=== PATIENT | male | born 1950 | race Caucasian/White ===

== ENCOUNTER 2017-05-20 17:37 | Emergency (ER) | payer BC ==
[~2017-05-20] VITALS: Ht 185.4 cm; Wt 85.0 kg
[~2017-05-20 17:37] MED LIST: HYDR25TA5 PO; LOSA100T PO; SIMV20TA PO
[2017-05-20 17:38] VITALS: BP 237/103; PULSE 80; RESP 18; TEMP 99; O2SAT 99
[2017-05-20] MEDS ORDERED: ASPI-516 CHEW (18:01)
[2017-05-20] MEDS ORDERED: MULTTAB67 PO (18:01)
[2017-05-20] MEDS ORDERED: FISH500C (18:01)
[2017-05-20 18:09] VITALS: BP 210/108; PULSE 70; RESP 19; O2SAT 97
--- NOTE | 2017-05-20 18:13 | PD ---
HPI Chief Complaint: Hypertension Time Seen by Provider: 17:50 Travel History International Travel<30 days: No Contact w/Intl Traveler<30days: No Traveled to known affect area: No History of Present Illness HPI 66-year-old male complains of redness and swelling of the left ankle. Patient denies any injury to the ankle. Patient states that the symptoms started about 7 days ago. Patient noticed his blood pressure was also elevated the past several days. Patient has history of hypertension. Patient has been taking Losartan and HCTZ was added a month ago. Patient denies any history of diabetes. Patient is a nonsmoker. Patient denies history of DVT or PE. Patient denies history of gouty arthritis. Patient denies any fever chills. Patient denies any recent long distant travel. PFSH Past Medical History High Cholesterol: Yes Hypertension: Yes Influenza Vaccination: Yes Past Surgical History Abdominal Surgery: Yes (HERNIA) Tonsillectomy: Yes Other Surgery: Yes (VASECTOMY) Social History Alcohol Use: Yes (DAILY COUPLE GLASSES WINE) Tobacco Use: No Substance Use: No Allergies-Medications (Allergen,Severity, Reaction): Coded Allergies: No Known Allergies (Verified , 05/20/17) Reported Meds & Prescriptions Reported Meds & Active Scripts Active Hydrochlorothiazide 25 Mg Tab 25 Mg PO DAILY Simvastatin 20 Mg Tab 20 Mg PO DAILY Losartan (Losartan Potassium) 100 Mg Tab 100 Mg PO DAILY Reported Fish Oil ([place]-3 Fatty Acids) 60 Mg-90 Mg-500 Mg Cap Multiple Vitamin 1 Tab 1 Tab PO DAILY Aspirin 81 Mg Chew 81 Mg CHEW ONCE Review of Systems General / Constitutional: No: Fever Eyes: No: Visual changes HENT: No: Headaches Cardiovascular: No: Chest Pain or Discomfort Respiratory: No: Shortness of Breath Gastrointestinal: No: Abdominal Pain Genitourinary: No: Dysuria Musculoskeletal: Positive: Edema, No: Pain Skin: No Rash Neurologic: No: Weakness Psychiatric: No: Depression Endocrine: No: Polydipsia Hematologic/Lymphatic: No: Easy Bruising Physical Exam Narrative GENERAL: Well-nourished, well-developed patient. SKIN: Focused skin assessment warm/dry. HEAD: Normocephalic. EYES: No scleral icterus. No injection or drainage. NECK: Supple, trachea midline. No JVD or lymphadenopathy. CARDIOVASCULAR: Regular rate and rhythm without murmurs, gallops, or rubs. RESPIRATORY: Breath sounds equal bilaterally. No accessory muscle use. GASTROINTESTINAL: Abdomen soft, non-tender, nondistended. MUSCULOSKELETAL: Patient has mild redness of the skin associated with the left ankle on the medial and lateral malleolus and distal aspect the left lower leg. No heat noted. No tenderness on palpation. Mild edema dorsal aspect the left foot. Patient has some mild soft tissue swelling over the right ankle also. No tenderness on palpation the calf area. Negative Homans sign. BACK: Nontender without obvious deformity. No CVA tenderness. Neurologic exam normal. Data Data Last Documented VS Vital Signs Date Time Temp Pulse Resp B/P (MAP) Pulse Ox O2 Delivery O2 Flow Rate FiO2 05/20/17 18:16 75 18 213/105 (141) 97 05/20/17 17:55 Room Air 05/20/17 17:38 99.0 Orders Orders Complete Blood Count With Diff (05/20/17 17:59) Comprehensive Metabolic Panel (05/20/17 17:59) B-Type Natriuretic Peptide (05/20/17 17:59) Prothrombin Time / Inr (Pt) (05/20/17 17:59) Act Partial Throm Time (Ptt) (05/20/17 17:59) C-Reactive Protein (Crp) (05/20/17 17:59) Westergren Sedimentation Rate (05/20/17 17:59) Chest, Single Ap (05/20/17 17:59) Iv Access Insert/Monitor (05/20/17 17:59) Ecg Monitoring (05/20/17 17:59) Oximetry (05/20/17 17:59) Uric Acid (05/20/17 17:59) Us Leg Venous Doppler Bilat (05/20/17 18:03) Hydralazine Inj (Apresoline Inj) (05/20/17 18:15) Labs Laboratory Tests Test 05/20/17 18:07 [facility] Medical Decision Making Medical Screen Exam Complete: Yes Emergency Medical Condition: Yes Differential Diagnosis Differential diagnosis including gouty arthritis, dependent edema, CHF, DVT, cellulitis. Narrative Course 66-year-old male redness and swelling left ankle. Mild swelling the right ankle also. Patient has history hypertension on HCTZ. Bora Chao MD May 20, 2017 18:12
[2017-05-20] MEDS ORDERED: hydrALAZINE HCL 20 MG/ML VIAL IV PUSH ONE (18:15)
[2017-05-20 18:16] VITALS: BP 213/105; PULSE 75; RESP 18; O2SAT 97
[2017-05-20 18:25] LABS: APTT (PATIENT) 26.9 SEC (24.3-30.1); PROTHROMBIN TIME - PATIENT 10.2 SEC (9.8-11.6)
[2017-05-20 18:26] LABS: AUTOMATED NEUTROPHIL # 2.8 TH/MM3 (1.8-7.7); BASOPHIL % 0.6 % (0.0-2.0); EOSINOPHIL # 0.2 TH/MM3 (0-0.4); EOSINOPHIL % 3.3 % (0.0-4.0); HEMATOCRIT 36.1 % (39.0-51.0); HEMO FLAGS DIFF FINAL; LYMPH % 25.1 % (9.0-44.0); LYMPHOCYTE # 1.3 TH/MM3 (1.0-4.8); MEAN CELL VOLUME 91.2 FL (80.0-100.0); MEAN CORPUSCULAR HEMOGLOBIN 31.9 PG (27.0-34.0); MONO % 16.3 % (0.0-8.0); NEUT % 54.7 % (16.0-70.0); PLATELET COUNT 337 TH/MM3 (150-450); RED BLOOD COUNT 3.96 MIL/MM3 (4.50-5.90); WHITE BLOOD COUNT 5.2 TH/MM3 (4.0-11.0)
--- NOTE | 2017-05-20 18:29 | RADRPT ---
EXAM DATE/TIME: 05/20/2017 18:11 [facility] COMPARISON: No previous studies available for comparison. INDICATIONS : High blood pressure. MEDICAL HISTORY : Hypertension. SURGICAL HISTORY : None. ENCOUNTER: Initial ACUITY: 1 day PAIN SCORE: 2/10 LOCATION: Bilateral chest FINDINGS: A single view of the chest demonstrates the lungs to be symmetrically aerated without evidence of mas s, infiltrate or effusion. The cardiomediastinal contours are unremarkable. Osseous structures are intact. CONCLUSION: 1. No acute findings. Osteoarthritis of the a.c. joints. Galo Harris MD on May 20, 2017 at 18:26 Board Certified Radiologist. This report was verified electronically.
[2017-05-20 18:39] LABS: ALT (GPT) 25 U/L (12-78); ANION GAP 9 MEQ/L (5-15); AST (GOT) 25 U/L (15-37); BICARBONATE 26.1 MEQ/L (21.0-32.0); BLOOD UREA NITROGEN 13 MG/DL (7-18); CHLORIDE 92 MEQ/L (98-107); GLOMERULAR FILTRATION RATE 86 ML/MIN (>89); POTASSIUM 3.9 MEQ/L (3.5-5.1); SODIUM (NA) 127 MEQ/L (136-145); URIC ACID 3.1 MG/DL (2.6-7.2)
[2017-05-20 18:42] LABS: ALKALINE PHOSPHATASE 60 U/L (45-117); TOTAL BILIRUBIN ADULT 0.5 MG/DL (0.2-1.0)
[2017-05-20 18:55] VITALS: BP 176/90; PULSE 80; RESP 18; O2SAT 99
--- NOTE | 2017-05-20 19:14 | RADRPT ---
EXAM DATE/TIME: 05/20/2017 18:21 [facility] COMPARISON: No previous studies available for comparison. INDICATIONS : Bilateral leg swelling. MEDICAL HISTORY : Hypercholesterolemia. Hypertension. Hyperlipidemia. SURGICAL HISTORY : Tonsillectomy. Hernia repair. Discectomy. Left achilles and miniscus repair. Vasectomy. ENCOUNTER: Initial ACUITY: 1 week PAIN SCORE: 2/10 LOCATION: Bilateral legs. TECHNIQUE: Venous ultrasound of the left and right leg was performed from the inguinal ligament to the proximal calf. Real-time, color Doppler and spectral tracing, compression and augmentation techniques were us ed. FINDINGS: RIGHT LEG: There is normal compressibility of the deep venous system from the inguinal region to the proximal ca lf. No echogenic clot is seen in the lumen of the common femoral, femoral, popliteal, and posterior tibial veins. There is a normal response of the venous system to proximal and distal augmentation an d respiration. LEFT LEG: There is normal compressibility of the deep venous system from the inguinal region to the proximal ca lf. No echogenic clot is seen in the lumen of the common femoral, femoral, popliteal, and posterior tibial veins. There is a normal response of the venous system to proximal and distal augmentation an d respiration. CONCLUSION: Normal examination. Galo Harris MD on May 20, 2017 at 19:12 Board Certified Radiologist. This report was verified electronically.
[2017-05-20 19:28] VITALS: BP 181/85; PULSE 74; RESP 18; O2SAT 99
--- NOTE | 2017-05-20 20:26 | PD ---
Physical Exam Narrative GENERAL: Well-nourished, well-developed patient. SKIN: Patient has swelling of his bilateral ankles, there is redness to the bilateral lower legs with left greater than right. There is no induration or abscess or crepitus HEAD: Normocephalic and atraumatic. EYES: No injection or drainage. ENT: No nasal drainage noted. NECK: Supple, trachea midline. CARDIOVASCULAR: Regular rate and rhythm RESPIRATORY: No increased effort. No accessory muscle use. EXTREMITIES: No significant specific joint pain, neurovascularly intact, no lacerations over, compartments soft. NEUROLOGICAL: Awake and alert. Motor and sensory grossly within normal limits. Normal speech. Data Data Last Documented VS Vital Signs Date Time Temp Pulse Resp B/P (MAP) Pulse Ox O2 Delivery O2 Flow Rate FiO2 05/20/17 19:28 74 18 181/85 (117) 99 Room Air 05/20/17 17:38 99.0 Orders Orders Complete Blood Count With Diff (05/20/17 17:59) Comprehensive Metabolic Panel (05/20/17 17:59) B-Type Natriuretic Peptide (05/20/17 17:59) Prothrombin Time / Inr (Pt) (05/20/17 17:59) Act Partial Throm Time (Ptt) (05/20/17 17:59) C-Reactive Protein (Crp) (05/20/17 17:59) Westergren Sedimentation Rate (05/20/17 17:59) Chest, Single Ap (05/20/17 17:59) Iv Access Insert/Monitor (05/20/17 17:59) Ecg Monitoring (05/20/17 17:59) Oximetry (05/20/17 17:59) Uric Acid (05/20/17 17:59) Us Leg Venous Doppler Bilat (05/20/17 18:03) Hydralazine Inj (Apresoline Inj) (05/20/17 18:15) Ed Discharge Order (05/20/17 20:20) Labs Laboratory Tests Test 05/20/17 18:07 White Blood Count 5.2 TH/MM3 Red Blood Count 3.96 MIL/MM3 Hemoglobin 12.6 GM/DL Hematocrit 36.1 % Mean Corpuscular Volume 91.2 FL Mean Corpuscular Hemoglobin 31.9 PG Mean Corpuscular Hemoglobin Concent 35.0 % Red Cell Distribution Width 13.0 % Platelet Count 337 TH/MM3 Mean Platelet Volume 6.8 FL Neutrophils (%) (Auto) 54.7 % Lymphocytes (%) (Auto) 25.1 % Monocytes (%) (Auto) 16.3 % Eosinophils (%) (Auto) 3.3 % Basophils (%) (Auto) 0.6 % Neutrophils # (Auto) 2.8 TH/MM3 Lymphocytes # (Auto) 1.3 TH/MM3 Monocytes # (Auto) 0.8 TH/MM3 Eosinophils # (Auto) 0.2 TH/MM3 Basophils # (Auto) 0.0 TH/MM3 CBC Comment DIFF FINAL Differential Comment Erythrocyte Sedimentation Rate 15 mm/hr Prothrombin Time 10.2 SEC Prothromb Time International Ratio 1.0 RATIO Activated Partial Thromboplast Time 26.9 SEC Blood Urea Nitrogen 13 MG/DL Creatinine 0.89 MG/DL Random Glucose 93 MG/DL Total Protein 7.2 GM/DL Albumin 3.8 GM/DL Calcium Level 8.8 MG/DL Uric Acid 3.1 MG/DL Alkaline Phosphatase 60 U/L Aspartate Amino Transf (AST/SGOT) 25 U/L Alanine Aminotransferase (ALT/SGPT) 25 U/L Total Bilirubin 0.5 MG/DL Sodium Level 127 MEQ/L Potassium Level 3.9 MEQ/L Chloride Level 92 MEQ/L Carbon Dioxide Level 26.1 MEQ/L Anion Gap 9 MEQ/L Estimat Glomerular Filtration Rate 86 ML/MIN C-Reactive Protein 1.60 MG/DL B-Type Natriuretic Peptide 70 PG/ML MDM Supervised Visit with TROY: No Interpretation(s) BNP is normal Narrative Course Signed over to me to follow BNP and if normal to discharge BNP is normal. Lengthy discussion with patient and and they agree to keep blood pressure log and follow closely as an outpatient for medication adjustment. No emergent indication for antibiotic at this time but patient and understand that if the redness worsens or if he develops a fever he needs to return for antibiotics. Patient could be having inflammatory arthritis and for this was recommended anti-inflammatories. He agrees to plan of care and return instructions. Diagnosis Primary Impression: Leg edema Additional Impression: Hypertension Qualified Codes: I10 - Essential (primary) hypertension Patient Instructions: General Instructions Additional Instruction: return as needed, follow with primary tuesday, keep blood pressure log, elevate legs at rest Med/Other Pt SpecificInfo: No Change to Meds Disposition: DISCHARGE HOME Condition: Stable Sherri Murcia MD May 20, 2017 20:26
[2017-05-20 21:10] VITALS: BP 164/88
[2017-05-24] MEDS ORDERED: AMLO10TA2 PO (08:52)
[2017-05-31] MEDS ORDERED: SIMV20TA PO (08:48)
[2017-05-31] MEDS ORDERED: HYDR25TA5 PO (08:48)
[2017-05-31] MEDS ORDERED: LOSA100T PO (08:48)
[2017-05-31] MEDS ORDERED: AMLO10TA2 PO (08:48)
== END 2017-05-20 21:15 | disposition home or self-care (01) ==
LOC: NEPC 17:37
DX: R60.0 Localized edema (principal); I10 Essential (primary) hypertension; E78.00 Pure hypercholesterolemia, unspecified; Z79.82 Long term (current) use of aspirin; Z79.899 Other long term (current) drug therapy
CPT/HCPCS: 71010; 80053; 83880; 84550; 85025; 85610; 85652; 85730; 86140; 93970; 96374; 99285; J0360

== ENCOUNTER 2017-06-30 06:57 | Day surgery (SDC) | payer BC ==
[~2017-06-30] VITALS: Ht 185.4 cm; Wt 85.3 kg
[~2017-06-30 06:57] MED LIST changes: +AMLO10TA2 PO; +ASPI-516 CHEW; +FISH500C; +MULTTAB67 PO
[2017-06-30] MEDS ORDERED: IOHEXOL 350 MG/ML 100 ML BTL (for Cath Lab) OTHER ONE (06:58)
[2017-06-30] MEDS ORDERED: IOHEXOL 350 MG/ML 50 ML BTL (for Cath Lab) OTHER ONE (06:58)
[2017-06-30 07:29] VITALS: BP 150/88; PULSE 65; RESP 18; TEMP 98.2; O2SAT 97
[2017-06-30 07:31] LABS: AUTOMATED NEUTROPHIL # 2.6 TH/MM3 (1.8-7.7); BASOPHIL # 0.1 TH/MM3 (0-0.2); EOSINOPHIL # 0.6 TH/MM3 (0-0.4); HEMATOCRIT 38.7 % (39.0-51.0); HEMOGLOBIN 13.5 GM/DL (13.0-17.0); LYMPH % 26.3 % (9.0-44.0); LYMPHOCYTE # 1.4 TH/MM3 (1.0-4.8); MEAN CELL VOLUME 91.3 FL (80.0-100.0); MEAN CORPUSCULAR HEMOGLOBIN 31.8 PG (27.0-34.0); MEAN CORPUSCULAR HGB CONC 34.8 % (32.0-36.0); MEAN PLATELET VOLUME 6.9 FL (7.0-11.0); MONO % 15.2 % (0.0-8.0); MONOCYTE # 0.8 TH/MM3 (0-0.9); NEUT % 47.5 % (16.0-70.0); PLATELET COUNT 390 TH/MM3 (150-450); RED BLOOD COUNT 4.24 MIL/MM3 (4.50-5.90); RED CELL DISTRIBUTION WIDTH 13.1 % (11.6-17.2); WHITE BLOOD COUNT 5.5 TH/MM3 (4.0-11.0)
[2017-06-30] MEDS ORDERED: METO25TA3 PO (07:37)
[2017-06-30] MEDS ORDERED: ATOR40TA16 PO (07:37)
[2017-06-30 07:41] LABS: PROTHROMBIN TIME - PATIENT 9.9 SEC (9.8-11.6)
[2017-06-30] MEDS ORDERED: diphenhydrAMINE HCL 50 MG CAP PO SCH (07:45)
[2017-06-30 07:48] LABS: BICARBONATE 27.6 MEQ/L (21.0-32.0); CALCIUM 9.1 MG/DL (8.5-10.1); CREATININE 1.05 MG/DL (0.60-1.30)
[2017-06-30] MEDS ORDERED: NS 1000P @30 MLS/HR (KVO) IV SCH (08:00)
[2017-06-30] MEDS ORDERED: MIDAZOLAM HCL 2 MG/2 ML VIAL ONE ×2 (08:35→09:16)
[2017-06-30] MEDS ORDERED: HEPARIN-NS/PF INJ 1,000 ML ONE (08:35)
[2017-06-30] MEDS ORDERED: NITROGLYCERIN INJ 5 ML ONE (08:36)
[2017-06-30] MEDS ORDERED: VERAPAMIL HCL 5 MG/2 ML VIAL ONE (08:36)
[2017-06-30] MEDS ORDERED: HEPARIN SODIUM - IV 10,000 UNITS/10 ML VIAL ONE (08:36)
[2017-06-30] MEDS ORDERED: PRASUGREL 10 MG TAB ONE (09:50)
--- NOTE | 2017-06-30 10:04 | CATHPROC ---
[employer] HIS Report Study Information Study Number Admission Scheduled Start Study Start [id number] Jun 30 2017 6:57AM 06/30/2017 Jun 30 2017 8:27AM [facility] Cardiac Catheterization Admit Source Facility Department Other [facility] - [facility] [employer] Physician and Clinical Staff Initial MD Fairbanks, Matthew Box Annealer Moraima Davila BSN Recorder Zaida Chacon,RT(R) (BS) Scrub Scott Garcia,RT(R) Procedures Performed Procedure Location (Site) Vessel Name Drug Eluting Inflatio LAD Prox Left Coronary L Heart Cath LV Gram-hand inj. LV LV Ventricle PTCA LAD Prox Left Coronary Wire insertion Radial (right) Radial Art. Equipment Time First Beater Description Size Mfg Part Number Used/Scraped COPILOT VALVE, BLEEDBACK [id number] 09:33 [employer] Used CONTROL *[id number] TRANSDUCER, TRUWAVE [id number] 08:40 SAHU BLAIR * Used W/STOCKCOCK *[id number] 534-545T *[id number] 534-521T *[id number] 08:40 [employer] PACK, CCL CUSTOM * Used *[id number] 08:40 [employer] SUPPORT, ARTERIAL ADULT 88769 *[id number] Used [id number] 09:34 [employer]IC BALLOON, 2.5 X 12MM EUPHORA 12MM Used *[id number] BALLOON, 4.0 X 8MM NC [id number] 09:46 [employer] 8MM Used EUPHORA *[id number] 08:50 [employer] JL 3.5 DXTERITY CATHETER FR 5 Used *[id number] 09:41 [employer] STENT, 3.5 12MM PERLITA 3.5 12MM Used *[id number] 09:38 [employer] STENT, 3.5 15MM PERLITA 3.5 15MM Used *[id number] 09:32 [employer]IC/AVE EBU 3.5 Z2 GUIDE CATHETER FR 6 Used *[id number] 09:33 [employer] MEDICAL 30 POLLY INDEFLATOR Used *[id number] BAND, RADIAL COMPRESSION TR [id number] 09:49 [employer] MEDICAL 24CM Used SHORT 24 *[id number] 08:40 [employer] WIRE, 3MMJ .035 180CM 180CM Used *[id number] 08:40 NAMIC MANIFOLD, 4 PORT * Used *[id number] 08:40 [employer]ED OMNIPAQUE, 350 MG, 150ML 150ML [id number] Used [id number] 08:40 [employer] MEDICAL BLANKET,WARM AIR CCL * Used *[id number] SHEATH, FR6 TRANSRADIAL [id number] 08:40 [employer] MEDICAL FR 6 Used SLENDER 10CM *[id number] WIRE, RUNTHROUGH NS FLOPPY [id number] 09:32 [employer] MEDICAL 180CM Used .014 180CM *[id number] Equipment Model, Serial, Lot Number and Expiration Data Description Model Number Serial Number Lot Number Expiration Date BALLOON, 4.0 X 8MM NC EUPHORA [id number] 02-23-2019 STENT, 3.5 12MM PERLITA [id number] 03-23-2019 History: Current Medications Medication Dosage/Unit Route Frequency Last Date/Time Taken Beta [place]cca Statins (any) ASA History: Allergies Allergy Reaction No Known Allergies History: Risk Factors Family History of Hypertension Dyslipidemia Previous NC Previous Heart Failure Premature CAD Yes Yes Yes No Yes Prior Valve Prior PCI Prior CABG Surgery No No No Cerebrovascular Peripheral Artery Chronic Lung On Dialysis Diabetes Disease Disease Disease No No No No No History: Stress Tests Stress or Imaging Studies Performed Yes Standard Exercise Stress Test No Stress Echo No Stress Test SPECT Stress Test SPECT Result Stress Test SPECT Ischemia Risk/Extent Yes Positive Low Stress Test CMR No Cardiac CTA Coronary Calcium Score No No History: Other Current Smoker No Labs Hgb (g/dl) Hct (%) WBC (l/cumm) Platelets (thousands) 11.60-17.00 35.00-51.00 4.00-11.00 150.00-450.00 13.5 38.7 5.5 390 Glucose (mg/dl) BUN (mg/dl) Creatinine (mg/dl) BUN:Creatinine (1:x) 74.00-106.00 7.00-18.00 0.50-1.30 10.00-20.00 84 13 1.0 13 Na (meq/l) K (meq/l) 136.00-145.00 3.50-5.10 133 4.3 INR (PTT:PT) 0.90-1.10 1 CPK-MB (ng/ML) 0.50-3.60 Not Drawn Medication Medication Total Dose (Bolus/Oral) Medication Total Dosage/Unit 1% XYLOCAINE 1 mL EFFIENT 60 mg FENTANYL 100 mcg HEPARIN 6000 units RADIAL COCKTAIL 1 units VERSED 4 mg Medications (Bolus/Oral) Medication Time Given Dosage/Unit Administered By Reason VERSED 06/30/2017 9:14:39 AM 2 mg Moraima Davila 2 mg VERSED given in lab by Moraima Davila BSN in Left Antecubital via Peripheral IV. 1% XYLOCAINE 06/30/2017 9:15:17 AM 1 mL Harris-Paulette, Matthew 1 mL 1% XYLOCAINE given in lab by HarrisAnetaPaulette Matthew in Right Radial via Subcutaneous. FENTANYL 06/30/2017 9:15:46 AM 50 mcg Moraima Davila 50 mcg FENTANYL given in lab by Moraima Davila BSN in Left Antecubital via Peripheral IV. Ntg 200mcg Verapamil 2.5mg Heparin RADIAL COCKTAIL 06/30/2017 9:16:30 AM 1 units Moraima Davila 3000U 1 units RADIAL COCKTAIL given in Right Radial via Radial. Reason: Ntg 200mcg Verapamil 2.5mg Heparin 2500U. VERSED 06/30/2017 9:18:57 AM 1 mg Moraima Davila 1 mg VERSED given in lab by Moraima Davila BSN in Left Antecubital via Peripheral IV. FENTANYL 06/30/2017 9:19:03 AM 25 mcg Moraima Davila 25 mcg FENTANYL given in lab by Moraima Davila BSN in Left Antecubital via Peripheral IV. HEPARIN 06/30/2017 9:30:54 AM 6000 units Moraima Davila 6000 units HEPARIN given in lab by Moraima Davila BSN in Left Antecubital via Peripheral IV. VERSED 06/30/2017 9:31:09 AM 1 mg Giovanni Moraima 1 mg VERSED given in lab by Moraima Davila BSN in Left Antecubital via Peripheral IV. FENTANYL 06/30/2017 9:32:20 AM 25 mcg Moraima Davila 25 mcg FENTANYL given in lab by Moraima Davila BSN in Left Antecubital via Peripheral IV. EFFIENT 06/30/2017 9:56:31 AM 60 mg Moraima Davila 60 mg EFFIENT given in lab by Moraima Davila BSN via Oral. Medication (Drip) Medication Time Given Dosage/Unit Concentration/Unit Diluent (ml) Solution IV Solutions 06/30/2017 8:27:32 AM 0 mL (IV) 500 NaCl .9 IV Solutions given in lab by Moraima Davila BSN in Left Antecubital via Peripheral IV. Pump/Dri p Flow = 30 ml/hr using NaCl .9. Initial Case Assessment Cardiovascular HR Rhythm NIBP Chest Pain 66 reg 149/83 0 Edema Present Skin color Skin None Normal Warm Dry Circulatory - Right Pulses Dorsalis Pedis Femoral Radial 1 3 3 Scale (0,1,2,3,4,d) Scale (0,1,2,3,4,d) Circulatory - Lower Extremities Color Lower Right Color Lower Left Normal Normal Neurological State Oriented to time-place- Alert Moves all extremities person Respiration - General Respiration Rate SpO2 (%) (B/min) 10 98 Chronological Log Time Study Chronological Log 8:27:15 Patient arrived via Bed. 8:27:16 Patient Name, D.O.B, / Armband Verified By R.N. 8:27:16 Consent signed by the physician and the patient and verified by the [employer] [employer] staff. 8:27:17 Pre-op and post- op instructions given; patient acknowledges understanding of instructions. 8:27:18 Verbal Stimulation=2 Physical Stimulation=2 Airway=2 Respiration=2 TOTAL=8. (0=absent, 1=li mited, 2=present) 8:27:19 Presedation assessment performed by [employer] RN. 8:27:24 Allens test performed on the right radial and ulnar artery. 8:27:27 Patient has been NPO for More than 6Hrs. 8:27:28 Skin Breakdown none per pt 8:27:28 Patient Warmer Placed on the Table. 8:27:30 Ruthy Prominences Protected 8:27:31 A # 20 IV was noted in the Antecubital (left). Grade = 0 IV Solutions given in lab by Moraima Davila BSN in Left Antecubital via Peripheral IV. Pu mp/Drip Flow = 30 ml/hr 8:27:32 using NaCl .9. 8:27:33 History and physical on the chart or being dictated. Assessment: Initial Case, HR=66 BPM, Rhythm=reg, OQLP=838/83 mmhg, Chest Pain=0, Edema=None, Col or=Normal, Skin = Warm, Dry Right Pulses: Derek Ped=1, Femoral=3, Radial=3 8:27:36 Lower Right Extremities: Color=Normal Lower Left Extremities: Color=Normal Neurological: State=Alert, Ox3, PEREZ Respiration: Resp=10 B/min, SpO2=98 % Vitals capture started with the following parameters, Patient=Adult, Interval=5 min, Initial Pre xghdu=384 mmHg, 8:33:41 Deflation Rate=5 mmHg, Cuff placed on Left Arm 8:34:16 Reference ECG taken 8:34:55 HR=66 bpm, BGGH=735/83 mmhg, SpO2=98.0 %, Resp=14 B/min, Pain=0, Marcie=10, Graves=2 8:38:35 Right Radial and right groin prepped with 2% chlorhexidine, and draped after a 3 min. waitin g time. 8:39:21 HR=65 bpm, EPWX=398/84 mmhg, SpO2=98.0 %, Resp=11 B/min, Pain=0, Marcie=10, Graves=2 8:44:22 HR=65 bpm, BLXW=642/77 mmhg, AjY0=640.0 %, Resp=10 B/min, Pain=0, Marcie=10, Graves=2 8:44:51 MD paged 8:45:53 Pressure channel 1 zeroed. 8:47:59 MD responded 8:49:25 HR=65 bpm, XADG=358/81 mmhg, TfK6=155.0 %, Resp=8 B/min, Pain=0, Marcie=10, Graves=2 8:54:24 HR=64 bpm, XQKB=460/78 mmhg, ZyP9=015.0 %, Resp=12 B/min, Pain=0, Marcie=10, Graves=2 8:59:24 HR=66 bpm, BZFF=604/77 mmhg, SpO2=99.0 %, Resp=10 B/min, Pain=0, Marcie=10, Graves=2 9:04:23 HR=64 bpm, XYYG=950/80 mmhg, SpO2=99.0 %, Resp=11 B/min, Pain=0, Marcie=10, Graves=2 9:07:11 MD arrived 9:09:26 HR=67 bpm, QDFD=853/78 mmhg, XfF1=976.0 %, Resp=17 B/min, Pain=0, Marcie=10, Graves=2 9:14:23 HR=68 bpm, YRMY=799/87 mmhg, SpO2=99.0 %, Resp=11 B/min, Pain=0, Marcie=10, Graves=2 Time Out. Correct patient, correct procedure, correct physician, power injector not loaded with contrast with surgical 9:14:23 team present. Time Out Concurred by MD and individual staff in procedure. 9:14:34 Case Start 9:14:39 2 mg VERSED given in lab by Moraima Davila BSN in Left Antecubital via Peripheral IV. 9:15:17 1 mL 1% XYLOCAINE given in lab by Matthew Fairbanks in Right Radial via Subcutaneous. 9:15:46 50 mcg FENTANYL given in lab by Moraima Davila BSN in Left Antecubital via Peripheral IV. 9:16:10 Access site was right Radial Artery. A SHEATH, FR6 TRANSRADIAL SLENDER 10CM FR 6 was advanced into the Radial (right) using the Enedelia rivas 9:16:20 technique. 9:16:30 1 units RADIAL COCKTAIL given in Right Radial via Radial. Reason: Ntg 200mcg Verapamil 2.5mg Heparin 2500U. A JR 4.0 INFINITI CATHETER FR 5 was advanced over a wire. OMNIPAQUE, 350 MG, 150ML 150ML was use d for 9:17:02 injections. Recorded Pressure: LV, HR=70, Condition=Condition 1 9:17:29 (Left Ventricle) LV 117/-3/5 9:17:38 The LV was manually injected with 8 cc's and visualized. OMNIPAQUE, 350 MG, 150ML 150ML used . Recorded Pressure: LV, Ao, HR=76, Condition=Condition 1 9:17:54 (Left Ventricle) LV 84/-3/3, (Aorta) Ao 107/58/81 9:18:57 1 mg VERSED given in lab by Moraima Davila , CHAUN in Left Antecubital via Peripheral IV. 9:19:03 25 mcg FENTANYL given in lab by Moraima Davila , BSN in Left Antecubital via Peripheral IV. 9:19:26 HR=71 bpm, PRMS=679/71 mmhg, SpO2=95.0 %, Resp=13 B/min, Pain=0, Marcie=10, Graves=2 After removing the current catheter a JL 3.5 DXTERITY CATHETER FR 5 was advanced over a WIRE, 3M MJ .035 180CM 9:19:54 180CM. 9:23:30 Catheter was removed A AL 1 INFINITI CATHETER FR 5 was advanced over a wire. OMNIPAQUE, 350 MG, 150ML 150ML was used for 9:23:47 injections. 9:24:21 HR=66 bpm, SMUL=121/70 mmhg, SpO2=94.0 %, Resp=10 B/min, Pain=0, Marcie=10, Graves=2 Recorded Pressure: Ao, HR=65, Condition=Condition 1 9:25:26 (Aorta) Ao 97/52/71 9:28:52 Catheter was removed 9:29:24 HR=66 bpm, JGGB=309/70 mmhg, SpO2=95.0 %, Resp=11 B/min, Pain=0, Marcie=10, Graves=2 9:30:54 6000 units HEPARIN given in lab by Moraima Davila BSN in Left Antecubital via Peripher al IV. 9:31:09 1 mg VERSED given in lab by Moraima Davila , BSN in Left Antecubital via Peripheral IV. A EBU 3.5 Z2 GUIDE CATHETER FR 6 was advanced over a wire. OMNIPAQUE, 350 MG, 150ML 150ML was us ed for 9:31:36 injections. 9:32:20 25 mcg FENTANYL given in lab by Moraima Davila , BSN in Left Antecubital via Peripheral IV. 9:32:37 A WIRE, RUNTHROUGH NS FLOPPY .014 180CM 180CM was inserted via Radial (right). A BALLOON, 2.5 X 12MM EUPHORA 12MM was inserted over WIRE, RUNTHROUGH NS FLOPPY .014 180CM 180CM via 9:34:06 the Radial (right). 9:34:23 HR=64 bpm, KSGD=112/67 mmhg, SpO2=95.0 %, Resp=10 B/min, Pain=0, Marcie=10, Graves=2 A BALLOON, 2.5 X 12MM EUPHORA 12MM was inserted over WIRE, RUNTHROUGH NS FLOPPY .014 180CM 180CM via 9:36:36 the Radial (right). A BALLOON, 2.5 X 12MM EUPHORA 12MM over a WIRE, RUNTHROUGH NS FLOPPY .014 180CM 180CM in the LAD 9:36:49 Prox was inflated using a 30 POLLY INDEFLATOR at 10 polly for 20 sec. 9:37:21 Balloon Removed A STENT, 3.5 15MM PERLITA 3.5 15MM was advanced through a EBU 3.5 Z2 GUIDE CATHETER FR 6 over a WIR E, 9:38:04 RUNTHROUGH NS FLOPPY .014 180CM 180CM. 9:39:24 HR=64 bpm, XSWC=794/71 mmhg, SpO2=96.0 %, Resp=15 B/min, Pain=0, Marcie=10, Graves=2 9:41:04 Stent not deployed. Stent removed and intact. A STENT, 3.5 12MM PERLITA 3.5 12MM was advanced through a EBU 3.5 Z2 GUIDE CATHETER FR 6 over a WIR E, 9:41:44 RUNTHROUGH NS FLOPPY .014 180CM 180CM. 9:43:19 Stent not deployed. Stent removed and intact. 9:44:25 HR=64 bpm, BMCU=637/72 mmhg, SpO2=97.0 %, Resp=12 B/min, Pain=0, Marcie=10, Graves=2 A STENT, 3.5 12MM PERLITA 3.5 12MM was deployed using a 30 POLLY INDEFLATOR at 12 atmospheres for 10 seconds in 9:44:43 the LAD Prox. 9:46:00 Delivery device removed A BALLOON, 4.0 X 8MM NC EUPHORA 8MM was inserted over WIRE, RUNTHROUGH NS FLOPPY .014 180CM 180C M via 9:46:52 the Radial (right). A BALLOON, 4.0 X 8MM NC EUPHORA 8MM over a WIRE, RUNTHROUGH NS FLOPPY .014 180CM 180CM in the LA D 9:47:37 Prox was inflated using a 30 POLLY INDEFLATOR at 14 polly for 15 sec. 9:49:26 HR=64 bpm, AOTH=486/71 mmhg, SpO2=97.0 %, Resp=10 B/min, Pain=0, Marcie=10, Graves=2 9:49:31 Balloon Removed 9:50:01 Catheter was removed 9:50:03 Wire removed 9:50:09 Case End 9:51:32 DOCU called. Spoke to Leslee. 9:51:49 Catheter(s) removed without difficulty 9:51:55 No case complications noted. 9:52:00 A Left Heart Cath was performed. Radial Compression Device Used. 11 mLs of air placed in BAND, RADIAL COMPRESSION TR SHORT 24 24C M. Affected 9:52:08 hand 99 % O2 saturation. 9:54:27 HR=66 bpm, IENA=833/78 mmhg, SpO2=97.0 %, Resp=17 B/min, Pain=0, Marcie=10, Graves=2 9:56:31 60 mg EFFIENT given in lab by Moraima Davila BSN via Oral. 9:59:26 MRIG=585/84 mmhg, Pain=0, Marcie=10, Graves=2 10:00:06 Vitals capture stopped. 10:03:17 Patient moved to [facility] End Study - Contrast Media Used In Study Contrast Total Opened (mL) Total Used (mL) Total Wasted (mL) Omnipaque 110 110 0 End Study - Maximum Contrast Load Max Contrast Load (mL) 426.6 End Study - Radiation Exposure Fluoro Time (minutes) 14.2 End Study - Sheaths Sheaths Pulled By Sheath Hold Time (min) Scott Garcia End Study - Patient Disposition Complications Transferred To Interventional Outcome No [facility] [employer] Holding successful
--- NOTE | 2017-06-30 10:54 | MA ---
cc: MATTHEW SHIRLEY DATE: 06/30/2017 1951 PROCEDURE PERFORMED 1. Left heart catheterization. 2. Selective right and left coronary angiography. 3. Left ventriculogram and hemodynamics. 4. Successful PCI, SHAKILA to proximal LAD. APPROACH Right transradial. INDICATION Positive stress test with complaints of dyspnea on exertion. DESCRIPTION OF PROCEDURE Consent signed. The patient was brought into the cardiac track laborer in fasting state. The right groin was prepped and draped in sterile fashion, using 1% lidocaine for local anesthesia and micropuncture kit, a 6-Nigerian sheath was inserted into the right radial artery. Antispasmodic cocktail given then selective right and left coronary angiography was performed with a JR-4 and a JL -4 diagnostic catheters. Angiography was taken in multiple views. The JR-4 diagnostic catheter was introduced over the wire to the ventricle. This was followed by pressure recordings, left ventriculogram on pullback. We identified a significant lesion on the proximal LAD of 85%. The remaining of the LAD had no significant obstruction with minimal luminal irregularities throughout and small flow for which we proceeded to fix by percutaneous intervention. For this the LAD was engaged with EBU 3 5 guide. Then the LAD was wired with a run-through wire which was anchored distally in the LAD. This was followed by pre-dilation of the proximal LAD lesion with a 2.5 12 compliant balloon followed by insertion and deployment of a 3.5 12 drug-eluting stent. The stent was postdilated with a noncompliant 4 0 balloon to high atmospheres. Final angiographic views revealed good stent position and expansion with KILEY III flow. The patient tolerated the procedure well without complications. Estimated blood loss less than 10 ccs. Total contrast used 100 ccs. The right radial access site was closed with a TR band. The patient was loaded with Effient after the procedure. RESULTS LEFT VENTRICLE The left ventricular pressure were 84/-3 with an LVEDP of 3. The aortic pressure was 97/52 with a mean of 71. There was no gradient upon pullback from the left ventricle to the aorta. Left ventriculogram revealed a symmetrically abdias ventricle with an estimated ejection fraction of 60%. ANGIOGRAPHY 1. The right coronary artery is a small and nondominant vessel. It has no significant obstructive coronary artery disease. 2. The left main is very short and is giving off the LAD and the left circumflex artery. 3. The LAD is a transapical vessel. It has a significant 85% lesion on its proximal segment, is giving off one main diagonal vessel which is patent with KILEY III flow. The remainder of the LAD has minimal luminal irregularities, tortuosity and some calcification, however no significant obstructions. 4. The left circumflex artery is a dominant artery giving the PDA. It does have some minimal luminal irregularities, has a 10% lesion proximally. It is giving off two diagonal vessels and the PDA all of which are patent with KILEY III flow and nonobstructive coronary artery disease. CONCLUSION 1. Successful PCI / SHAKILA to proximal LAD in the setting of positive stress test and complaints of FREY. 2. Preserved LV systolic function. RECOMMENDATIONS Transfer to the DOC unit for post cath care with IV hydration for the next 4 hours and continue dual antiplatelet agent with aspirin and Effient as well as aggressive medical management for secondary prevention of CAD. He should follow up with Dr. Baker upon discharge. Matthew Shirley MD, MPH, [facility] SUPERVISOR [employer] PREPARATION/TLL /9:54 AM /10:15 AM TESS
[2017-06-30] MEDS ORDERED: SODIUM CHLORIDE 0.9% FLUSH 10 ML FLUSH IV FLUSH PRN (11:00)
[2017-06-30] MEDS ORDERED: PRASUGREL 10 MG TAB PO ONE (11:00)
[2017-06-30] MEDS ORDERED: ACETAMINOPHEN 325 MG TAB PO PRN (11:00)
[2017-06-30] MEDS ORDERED: MISC INFORMATION XX ONE (11:00)
[2017-06-30] MEDS ORDERED: ASPIRIN 81 MG CHEW TAB PO SCH (11:00)
[2017-06-30] MEDS ORDERED: PRAS10TA PO (15:28)
--- NOTE | 2017-06-30 15:58 | EKG ---
Date Performed: 06/30/2017 Time Performed: 07:32:18 PTAGE: 66 years EKG: Sinus rhythm . Normal ECG NO PREVIOUS TRACING DOCTOR: Peri Martínez Interpretating Date/Time 06/30/2017 15:57:22
[2017-06-30] MEDS ORDERED: ATORVASTATIN 10 MG TAB PO SCH (21:00)
[2017-06-30] MEDS ORDERED: SODIUM CHLORIDE 0.9% FLUSH 10 ML FLUSH IV FLUSH SCH (21:00)
[2017-06-30] MEDS ORDERED: METOPROLOL TARTRATE 25 MG TAB PO SCH (21:00)
[2017-07-01] MEDS ORDERED: RAMIPRIL 2.5 MG CAP PO SCH (09:00)
[2017-07-01] MEDS ORDERED: PRASUGREL 10 MG TAB PO SCH (09:00)
== END 2017-06-30 17:20 | disposition home or self-care (01) ==
LOC: HDOC 06:57 → HDIC 06:58 → HDOC 17:20
PROVIDERS: ATTEND Radiology Vascular & Interventional Radiology
DX: I25.10 Atherosclerotic heart disease of native coronary artery without angina pectoris (principal); I11.0 Hypertensive heart disease with heart failure; I50.30 Unspecified diastolic (congestive) heart failure; E87.1 Hypo-osmolality and hyponatremia; R94.39 Abnormal result of other cardiovascular function study; E78.5 Hyperlipidemia, unspecified; I77.810 Thoracic aortic ectasia; Z01.818 Encounter for other preprocedural examination; Z01.810 Encounter for preprocedural cardiovascular examination
CPT/HCPCS: 80048; 85025; 85610; 85730; 92928; 93005; 93458; 99152; 99153; C1725; C1769; C1874; C1887; C1893; J1644; J2250; J3010; Q9967